=== PATIENT | female | born 1940 | race African-American/Black ===

== ENCOUNTER 2019-08-04 22:34 | Observation (INO) ==
[2019-08-04] MEDS ORDERED: ONDANSETRON 4 MG/2 ML VIAL IV STA (23:01)
[2019-08-04] MEDS ORDERED: KETOROLAC 30 MG/1 ML VIAL IV STA (23:01)
[2019-08-04] MEDS ORDERED: ORPHENADRINE 60 MG/2 ML VIAL IV STA (23:01)
[2019-08-04 23:13] LABS: Basophils % 0.7 % (0.0-0.8); Eosinophils # 0.2 10*3/uL (0.0-0.87); Eosinophils % 4.3 % (0.00-10.9); Hemoglobin 10.5 GM/DL (12.0-16.0); Immature Granulocytes % 0.5 %; Immature Granulocytes Absolute 0.03 #; Lymphocytes # 1.3 10*3/uL (1.4-4.0); Lymphocytes % 23.8 % (21.3-54.2); Mean Corpuscular HGB Conc 31.8 GM/DL (32-36); Mean Corpuscular Volume 103.1 FL (87-102); Mean Platelet Volume 9.4 FL (9.6-12.0); Monocytes % 16.3 % (1.7-12.7); Neutrophils % 54.4 % (38.7-73.9); Platelet Count 337 T/CUMM (130-400); White Blood Count 5.6 T/CUMM (4-12)
[2019-08-04 23:21] LABS: INR 1.1; PT Patient Result 12.1 SECS (9.6-12.2); Partial Thromboplastin Time 29.3 SECS (20.8-36.0)
[2019-08-04 23:32] LABS: Alanine Aminotransferase 16 U/L (13-56); Albumin 2.2 G/DL (3.4-5.0); Alkaline Phosphatase 51 U/L (45-117); Aspartate Amino Transferase 13 U/L (0-37); Bilirubin,Total < 0.39 MG/DL (0.2-1.0); Blood Urea Nitrogen 7 MG/DL (7-18); CKMB % 11.4 %; Calcium 8.2 MG/DL (8.5-10.1); Estimated Glom Filtration Rate 151 ML/MIN; Glucose 84 MG/DL (74-106); Osmolality,Calculated 271.7 MOS/KG (273-304); Total Protein 5.4 G/DL (6.4-8.3)
[2019-08-04 23:33] LABS: Troponin I 0.349 NG/ML (0.00-0.045)
[2019-08-04] MEDS ORDERED: NITROGLYCERIN 2% OINT 1 INCH/GM PACK TOP STA (23:35)
[2019-08-05] MEDS ORDERED: DOCUSATE SODIUM 100 MG CAPSULE PO PRN (01:06)
[2019-08-05] MEDS ORDERED: ACETAMINOPHEN 325 MG TABLET PO PRN (01:06)
[2019-08-05] MEDS ORDERED: ONDANSETRON 4 MG/2 ML VIAL IV PRN (01:06)
[2019-08-05] MEDS ORDERED: MORPHINE 4 MG/1 ML VIAL IV PRN (01:29)
[2019-08-05] MEDS ORDERED: ALBUTEROL 2.5 MG/3 ML NEB RESP TX PRN (01:29)
[2019-08-05] MEDS ORDERED: MELATONIN 3 MG TABLET PO PRN (01:29)
[2019-08-05] MEDS ORDERED: NITROGLYCERIN SL 0.4 MG TABLET SL PRN (01:29)
[2019-08-05] MEDS ORDERED: traMADol 50 MG TABLET PO PRN (01:29)
[2019-08-05] MEDS ORDERED: BISACODYL 5 MG TABLET PO PRN (01:29)
[2019-08-05 01:52] LABS: Band Neutrophils 3 % (0-10); Eosinophils 1 % (0-10); Lymphocytes 17 % (20-55); Segmented Neutrophils 70 % (50-85); Total Cells Counted 100
[2019-08-05 01:53] LABS: Macrocytosis 1+; Platelet Estimate Normal
[2019-08-05] MEDS ORDERED: ASPIRIN CHEW 81 MG TABLET PO SCH (09:00)
[2019-08-05] MEDS ORDERED: ASCORBIC ACID 500 MG TABLET PO SCH (09:00)
[2019-08-05] MEDS ORDERED: FLUTICASONE/SALMETEROL 250-50 DISKUS 14 DOSE INH SCH (09:00)
[2019-08-05] MEDS ORDERED: ENOXAPARIN 40 MG/0.4 ML SYRINGE SUBCUT SCH (09:00)
[2019-08-05] MEDS ORDERED: PANTOPRAZOLE 40 MG TABLET PO SCH (09:00)
[2019-08-05 16:32] VITALS: BP 100/61
[2019-08-05] MEDS ORDERED: DICLOFENAC 1.3% PATCH 5/PACK TRANSDERM SCH (17:00)
[2019-08-05] MEDS ORDERED: SIMVASTATIN 20 MG TABLET PO SCH (21:00)
== END 2019-08-05 17:45 ==
LOC: EDUNIT# → EDBD → N.EDINP 22:34 → N.ED 22:34 → N.2W 08-05 01:33
PROVIDERS: ADMIT Internal Medicine; ATTEND Internal Medicine

== ENCOUNTER 2019-08-27 10:56 | Inpatient (IN) ==
[2019-08-27] MEDS ORDERED: SODIUM CHLORIDE 0.9% 500 ML IV STA (11:14)
[2019-08-27] MEDS ORDERED: PANTOPRAZOLE 40 MG VIAL IV STA (11:14)
[2019-08-27] MEDS ORDERED: DICYCLOMINE 20 MG/2 ML AMP IM ONE (11:14)
[2019-08-27] MEDS ORDERED: METOCLOPRAMIDE 10 MG/2 ML VIAL IV STA (11:14)
[2019-08-27] MEDS ORDERED: ONDANSETRON 4 MG/2 ML VIAL IV STA (11:14)
[2019-08-27 11:20] LABS: Basophils % 0.3 % (0.0-0.8); Eosinophils # 0.1 10*3/uL (0.0-0.87); Eosinophils % 0.7 % (0.00-10.9); Hematocrit 33.4 VOL% (35.7-47.0); Hemoglobin 10.8 GM/DL (12.0-16.0); Immature Granulocytes % 0.4 %; Immature Granulocytes Absolute 0.04 #; Lymphocytes % 11.3 % (21.3-54.2); Mean Corpuscular HGB Conc 32.3 GM/DL (32-36); Mean Corpuscular Volume 102.5 FL (87-102); Mean Platelet Volume 10.8 FL (9.6-12.0); Monocytes % 8.1 % (1.7-12.7); Neutrophils % 79.2 % (38.7-73.9); Platelet Count 221 T/CUMM (130-400); Red Blood Count 3.26 MC/CUMM (3.8-5.5); Red Cell Distribution Width 14.8 % (9.3-17.3)
[2019-08-27 11:36] LABS: Alanine Aminotransferase 14 U/L (13-56); Albumin 2.2 G/DL (3.4-5.0); Alkaline Phosphatase 85 U/L (45-117); Amylase 13 U/L (25-115); Aspartate Amino Transferase 11 U/L (0-37); Blood Urea Nitrogen 25 MG/DL (7-18); Estimated Glom Filtration Rate 40 ML/MIN; Glucose 91 MG/DL (74-106); Osmolality,Calculated 278.7 MOS/KG (273-304); Total Protein 5.4 G/DL (6.4-8.3)
[2019-08-27 11:38] LABS: Troponin I 0.629 NG/ML (0.00-0.045)
[2019-08-27 12:51] LABS: Apearance,Urine CLOUDY (Clear); Bacteria,Urine Many /HPF (Few); Bilirubin,Urine Negative (Negative); Blood, Urine Negative (Negative); Glucose,Urine (UA) Negative (Negative); Ketones,Urine Negative (Negative); Mucus,Urine Occasional /LPF (Occasional); Nitrite,Urine Negative (Negative); Protein,Urine 30 MG/DL; RBC,Urine 4 /HPF (0-4); Squamous Epithelial Cell,Urine Occasional /HPF (0-10); WBC,Urine 3 /HPF (0-6)
[2019-08-27 12:54] LABS: Urine Color Yellow (Yellow)
[2019-08-27 13:16] LABS: PT Patient Result 10.7 SECS (9.6-12.2); Partial Thromboplastin Time 31.3 SECS (20.8-36.0)
[2019-08-27] MEDS ORDERED: PROMETHAZINE 25 MG TABLET PO PRN (13:19)
[2019-08-27] MEDS ORDERED: MORPHINE 4 MG/1 ML VIAL IV PRN (13:19)
[2019-08-27] MEDS ORDERED: SODIUM CHLORIDE 0.9% 1,000 ML IV SCH ×2 (13:30→15:00)
[2019-08-27] MEDS ORDERED: cefTRIAXone 2,000 MG in SYRINGE 1 EACH IV SCH (13:30)
[2019-08-27] MEDS ORDERED: ALBUTEROL/IPRATROPIUM 3 ML NEB RESP TX PRN (13:46)
[2019-08-27 13:56] LABS: Risk Ratio 3.39; Thyroid Stimulating Hormone 2.32 uIU/ml (0.358-3.74); VLDL CHOLESTEROL 21.2 MG/DL
[2019-08-27] MEDS: CEFEPIME 1,000 MG in SODIUM CHLORIDE 0.9% 100 ML IV SCH ×2 (15:55→22:42)
[2019-08-27] MEDS: MELATONIN 3 MG TABLET PO SCH (20:24)
[2019-08-27] MEDS: ENOXAPARIN 30 MG/0.3 ML SYRINGE SUBCUT SCH (20:24)
[2019-08-27] MEDS ORDERED: DOXYCYCLINE HYCLATE 100 MG CAPSULE PO SCH (21:00)
[2019-08-27] MEDS: ONDANSETRON 4 MG/2 ML VIAL IV PRN (23:56)
[2019-08-28 05:15] LABS: Basophils % 0.3 % (0.0-0.8); Eosinophils # 0.1 10*3/uL (0.0-0.87); Eosinophils % 0.8 % (0.00-10.9); Hematocrit 27.7 VOL% (35.7-47.0); Hemoglobin 8.9 GM/DL (12.0-16.0); Immature Granulocytes % 0.5 %; Immature Granulocytes Absolute 0.04 #; Lymphocytes # 0.9 10*3/uL (1.4-4.0); Lymphocytes % 12.2 % (21.3-54.2); Mean Corpuscular HGB Conc 32.1 GM/DL (32-36); Mean Corpuscular Volume 101.8 FL (87-102); Mean Platelet Volume 10.7 FL (9.6-12.0); Monocytes % 12.7 % (1.7-12.7); Neutrophils % 73.5 % (38.7-73.9); Platelet Count 190 T/CUMM (130-400); Red Blood Count 2.72 MC/CUMM (3.8-5.5); Red Cell Distribution Width 14.6 % (9.3-17.3); White Blood Count 7.4 T/CUMM (4-12)
[2019-08-28 05:46] LABS: Albumin 1.9 G/DL (3.4-5.0); Calcium 7.5 MG/DL (8.5-10.1); Osmolality,Calculated 278.7 MOS/KG (273-304); Total Protein 4.3 G/DL (6.4-8.3)
[2019-08-28] MEDS: CEFEPIME 1,000 MG in SODIUM CHLORIDE 0.9% 100 ML IV SCH ×3 (06:02→22:36)
[2019-08-28] MEDS: ONDANSETRON 4 MG/2 ML VIAL IV PRN ×2 (06:02→21:26)
[2019-08-28] MEDS ORDERED: POTASSIUM CHLORIDE 20 MEQ TABLET PO ONE (07:51)
[2019-08-28] MEDS ORDERED: BISACODYL 5 MG TABLET PO SCH (09:00)
[2019-08-28] MEDS: SPIRONOLACTONE 50 MG TABLET PO SCH (11:39)
[2019-08-28] MEDS: PANTOPRAZOLE 40 MG TABLET PO SCH (11:39)
[2019-08-28] MEDS: POLYETHYLENE GLYCOL POWDER 17 GM PACK PO SCH (11:39)
[2019-08-28 15:38] LABS: Glucose,Pleural Fluid 88 MG/DL; LDH,Body Fluid 61 U/L
[2019-08-28 17:43] LABS: Lymphocytes,Pleural Fluid 69 %; Monocytes,Pleural Fluid 4 %; Neutrophils,Pleural Fluid 27 %
[2019-08-28 17:44] LABS: RBC,Pleural Fluid 1066 T/CUMM
[2019-08-28] MEDS: SIMVASTATIN 20 MG TABLET PO SCH (21:24)
[2019-08-28] MEDS: ENOXAPARIN 30 MG/0.3 ML SYRINGE SUBCUT SCH (21:24)
[2019-08-28] MEDS: MELATONIN 3 MG TABLET PO SCH (21:24)
[2019-08-29 05:28] LABS: Basophils % 0.4 % (0.0-0.8); Eosinophils # 0.1 10*3/uL (0.0-0.87); Eosinophils % 0.9 % (0.00-10.9); Hematocrit 26.9 VOL% (35.7-47.0); Hemoglobin 8.6 GM/DL (12.0-16.0); Immature Granulocytes % 0.8 %; Immature Granulocytes Absolute 0.04 #; Lymphocytes # 0.9 10*3/uL (1.4-4.0); Lymphocytes % 17.3 % (21.3-54.2); Mean Corpuscular Volume 102.7 FL (87-102); Mean Platelet Volume 10.8 FL (9.6-12.0); Neutrophils % 62.6 % (38.7-73.9); Platelet Count 197 T/CUMM (130-400); Red Blood Count 2.62 MC/CUMM (3.8-5.5); Red Cell Distribution Width 14.5 % (9.3-17.3); White Blood Count 5.3 T/CUMM (4-12)
[2019-08-29 05:53] LABS: Albumin 1.7 G/DL (3.4-5.0); Bilirubin,Total 0.7 MG/DL (0.2-1.0); Calcium 7.4 MG/DL (8.5-10.1); Eosinophils 3 % (0-10); Hypochromasia 1+; Lymphocytes 15 % (20-55); Osmolality,Calculated 282.3 MOS/KG (273-304); Segmented Neutrophils 69 % (50-85); Total Cells Counted 100; Total Protein 4.3 G/DL (6.4-8.3)
[2019-08-29 05:55] LABS: Atypical Lymphocytes Few; Platelet Estimate Adequate
[2019-08-29 05:56] LABS: Macrocytosis 1+
[2019-08-29] MEDS: PANTOPRAZOLE 40 MG TABLET PO SCH (09:30)
[2019-08-29] MEDS: CEFEPIME 1,000 MG in SODIUM CHLORIDE 0.9% 100 ML IV SCH ×3 (09:30→23:16)
[2019-08-29] MEDS: SPIRONOLACTONE 50 MG TABLET PO SCH (09:30)
[2019-08-29] MEDS: POLYETHYLENE GLYCOL POWDER 17 GM PACK PO SCH (09:31)
[2019-08-29] MEDS: ONDANSETRON 4 MG/2 ML VIAL IV PRN ×3 (09:50→20:15)
[2019-08-29] MEDS: SIMVASTATIN 20 MG TABLET PO SCH (21:47)
[2019-08-29] MEDS: MELATONIN 3 MG TABLET PO SCH (21:47)
[2019-08-29] MEDS: ENOXAPARIN 30 MG/0.3 ML SYRINGE SUBCUT SCH (21:48)
[2019-08-30 06:02] LABS: Basophils % 0.4 % (0.0-0.8); Eosinophils % 0.8 % (0.00-10.9); Hematocrit 28.1 VOL% (35.7-47.0); Immature Granulocytes Absolute 0.05 #; Lymphocytes % 19.8 % (21.3-54.2); Mean Corpuscular Volume 103.7 FL (87-102); Mean Platelet Volume 10.4 FL (9.6-12.0); Monocytes % 21.4 % (1.7-12.7); Neutrophils % 56.6 % (38.7-73.9); Platelet Count 218 T/CUMM (130-400); Red Blood Count 2.71 MC/CUMM (3.8-5.5); Red Cell Distribution Width 14.2 % (9.3-17.3)
[2019-08-30] MEDS: CEFEPIME 1,000 MG in SODIUM CHLORIDE 0.9% 100 ML IV SCH (06:33)
[2019-08-30 06:35] LABS: Alanine Aminotransferase < 9 U/L (13-56); Albumin 1.7 G/DL (3.4-5.0); Alkaline Phosphatase 45 U/L (45-117); Aspartate Amino Transferase 7 U/L (0-37); Blood Urea Nitrogen 23 MG/DL (7-18); Calcium 7.6 MG/DL (8.5-10.1); Estimated Glom Filtration Rate 77 ML/MIN; Glucose 78 MG/DL (74-106); Osmolality,Calculated 283.3 MOS/KG (273-304); Total Protein 4.5 G/DL (6.4-8.3)
[2019-08-30 06:42] LABS: Atypical Lymphocytes Few; Band Neutrophils 2 % (0-10); Lymphocytes 18 % (20-55); Segmented Neutrophils 65 % (50-85); Total Cells Counted 100
[2019-08-30 06:43] LABS: Hypochromasia 1+; Macrocytosis 1+
[2019-08-30 06:44] LABS: Platelet Estimate Normal
[2019-08-30] MEDS: SPIRONOLACTONE 50 MG TABLET PO SCH (09:35)
[2019-08-30] MEDS: POLYETHYLENE GLYCOL POWDER 17 GM PACK PO SCH (09:35)
[2019-08-30] MEDS: ONDANSETRON 4 MG/2 ML VIAL IV PRN (09:35)
[2019-08-30] MEDS: PANTOPRAZOLE 40 MG TABLET PO SCH (09:35)
[2019-08-30] MEDS ORDERED: PROMETHAZINE INJ 12.5 MG in SODIUM CHLORIDE 0.9% 50 ML IV ONE (13:00)
[2019-08-30] MEDS: cefTRIAXone 1,000 MG in SYRINGE 1 EACH IV SCH (16:34)
[2019-08-30] MEDS: LACTATED RINGERS 1,000 ML IV SCH (18:25)
[2019-08-30] MEDS: PANTOPRAZOLE 40 MG VIAL IV SCH (20:58)
[2019-08-30] MEDS: MELATONIN 3 MG TABLET PO SCH (20:59)
[2019-08-30] MEDS: SIMVASTATIN 20 MG TABLET PO SCH (21:00)
[2019-08-31] MEDS: LACTATED RINGERS 1,000 ML IV SCH ×2 (03:23→14:50)
[2019-08-31] MEDS ORDERED: LIDOCAINE 2% 5 ML VIAL ONE (08:23)
[2019-08-31] MEDS ORDERED: ETOMIDATE 20 MG/10 ML VIAL IV ONE (08:23)
[2019-08-31] MEDS ORDERED: PROMETHAZINE INJ 25 MG in SODIUM CHLORIDE 0.9% 50 ML IV ONE (09:20)
[2019-08-31] MEDS ORDERED: PROMETHAZINE 25 MG/1 ML VIAL ONE (09:22)
[2019-08-31] MEDS ORDERED: SODIUM CHLORIDE 0.9% 0 ML IV ONE (09:23)
[2019-08-31] MEDS ORDERED: SODIUM CHLORIDE 0.9% 100 ML IV ONE (09:33)
[2019-08-31] MEDS: POLYETHYLENE GLYCOL POWDER 17 GM PACK PO SCH (12:57)
[2019-08-31] MEDS: SPIRONOLACTONE 50 MG TABLET PO SCH (12:57)
[2019-08-31] MEDS ORDERED: PHENOL 1.4% THROAT SPRAY 177 ML BOTTLE PO PRN (13:05)
[2019-08-31] MEDS: PANTOPRAZOLE 40 MG VIAL IV SCH (14:32)
[2019-08-31] MEDS ORDERED: ACETAMINOPHEN 325 MG TABLET PO PRN (15:11)
[2019-08-31] MEDS ORDERED: CALCIUM CHLORIDE 1,000 MG/10 ML SYRINGE IV ONE ×2 (15:49→16:14)
[2019-08-31] MEDS ORDERED: AMIODARONE 150 MG/3 ML VIAL ONE (15:49)
[2019-08-31] MEDS ORDERED: SODIUM BICARBONATE 50 MEQ/50 ML SYRINGE IV ONE ×2 (15:49→16:14)
[2019-08-31] MEDS ORDERED: EPINEPHrine 1 MG/10 ML SYRINGE ONE ×2 (15:49→16:14)
[2019-08-31] MEDS: DEXTROSE 10% 500 ML IV SCH ×3 (16:05→17:51)
[2019-08-31] MEDS ORDERED: DEXTROSE 10% 250 ML IV ONE (16:07)
[2019-08-31] MEDS ORDERED: DEXTROSE 50% 25 GM/50 ML SYRINGE IV ONE (16:14)
[2019-08-31 16:41] LABS: Basophils % 0.4 % (0.0-0.8); Eosinophils % 0.2 % (0.00-10.9); Hematocrit 30.8 VOL% (35.7-47.0); Hemoglobin 9.3 GM/DL (12.0-16.0); Immature Granulocytes % 5.1 %; Immature Granulocytes Absolute 0.28 #; Lymphocytes # 3.4 10*3/uL (1.4-4.0); Lymphocytes % 62.1 % (21.3-54.2); Mean Corpuscular HGB Conc 30.2 GM/DL (32-36); Mean Corpuscular Volume 109.6 FL (87-102); Mean Platelet Volume 10.1 FL (9.6-12.0); Monocytes % 10.7 % (1.7-12.7); NRBC # 0.04 10*3/uL; Neutrophils % 21.5 % (38.7-73.9); Platelet Count 191 T/CUMM (130-400); Red Blood Count 2.81 MC/CUMM (3.8-5.5); Red Cell Distribution Width 14.3 % (9.3-17.3); White Blood Count 5.4 T/CUMM (4-12)
[2019-08-31 16:56] VITALS: BP 85/49
[2019-08-31 16:57] LABS: Albumin 1.7 G/DL (3.4-5.0); Bilirubin,Direct 0.18 MG/DL (0.0-0.20); Bilirubin,Indirect 0.3 MG/DL (0.0-1.0); Bilirubin,Total 0.5 MG/DL (0.2-1.0); Calcium 8.9 MG/DL (8.5-10.1); Osmolality,Calculated 285.8 MOS/KG (273-304)
[2019-08-31 17:03] LABS: CKMB % 12.7 %
[2019-08-31 17:04] LABS: Troponin I 0.537 NG/ML (0.00-0.045)
[2019-08-31] MEDS: cefTRIAXone 1,000 MG in SYRINGE 1 EACH IV SCH (17:52)
[2019-08-31 21:58] LABS: Lymphocytes 72 % (20-55); Macrocytosis 2+; Nucleated Red Blood Cells 2 (0-5); Platelet Estimate Normal; Segmented Neutrophils 25 % (50-85); Total Cells Counted 100
== END 2019-08-31 16:26 | disposition expired | DRG 871 ==
LOC: N.ED 10:56 → SUATTDRO 13:15 → N.EDINP 13:15 → N.5E 14:08 → N.TELEN 14:35 → N.ICU 08-31 15:52
PROVIDERS: ADMIT Emergency Medicine; ATTEND Internal Medicine
PROC: IRTHORA (2019-08-28 14:00)